=== PATIENT | male | born 1955 | race Asian ===

== ENCOUNTER 2016-12-26 | Inpatient (IN) | payer OTHER ==
[~2016-12-26] VITALS: Ht 167.6 cm; Wt 64.0 kg
[2016-12-26 00:13] VITALS: BP 160/91
[2016-12-26] MEDS ORDERED: BACTRIM DS 800/1 TAB PO (00:19)
[2016-12-26] MEDS ORDERED: COMPAZINE5 M1 PO (00:19)
--- NOTE | 2016-12-26 01:20 | NUR ---
PT TAKEN TO BED 1
--- NOTE | 2016-12-26 01:26 | NUR ---
Dr. Lau evaluating patient at bedside.
[2016-12-26] MEDS ORDERED: MORPHINE SULFATE 4 MG/ML SYR IVP ONE ×4 (01:35→04:45)
[2016-12-26] MEDS ORDERED: NACL 0.9% 1,000 ML IV ONE ×2 (01:35→04:45)
[2016-12-26] MEDS ORDERED: ONDANSETRON 4 MG/2 ML VIAL IVP ONE (01:35)
--- NOTE | 2016-12-26 01:40 | NUR ---
61Y M BIB FAMILY C/O ABD PAIN FOR FEW DAYS. NO VOMITTING NOTED.
--- NOTE | 2016-12-26 03:50 | NUR ---
PT TAKEN TO CT
--- NOTE | 2016-12-26 04:20 | NUR ---
PT RETURN FROM CT
[2016-12-26] MEDS ORDERED: PIPERACILLIN/TAZOBACTAM 3.375 GM in DEXTROSE 5% 50 ML IV ONE (04:45)
[2016-12-26] MEDS ORDERED: PIPERACILLIN/TAZOBACTAM 3.375 GM VIAL IV ONE (04:50)
[2016-12-26] MEDS: NACL 0.9% 1,000 ML IV SCH ×2 (05:17→08:45)
[2016-12-26] MEDS ORDERED: ONDANSETRON 4 MG/2 ML VIAL IVP PRN ×2 (05:20→16:30)
[2016-12-26] MEDS ORDERED: MORPHINE SULFATE 4 MG/ML SYR IVP PRN (05:20)
[2016-12-26] MEDS ORDERED: MORPHINE SULFATE 2 MG/ML SYR IVP PRN (05:20)
--- NOTE | 2016-12-26 05:58 | NUR ---
Patient will be admitted to care of DR George CALABRESE. Admited to TELEMETRY. Will go to room 122B. Belongings list completed. Report to ANTONY FUENTES.
[2016-12-26 06:00] VITALS: BP 151/84
--- NOTE | 2016-12-26 06:00 | NUR ---
ADMITTED A PT FROM ER. TRANSPORTED VIA GURNEY ACCOMPANIED BY ER NURSE AND FAMILY MEMBERS. PT IS AAOX4 VIATNAMESE SPEAKER, HAS PAIN OF 7/10, MEDICATED IN ER. SCD IN PLACED. ON ROOM AIR, NO S/S OF RESPIRATORY DISTRESS/DISCOMFORT NOTED. NOTED A NASOGASTRIC TUBE TO RIGHT NARE. VITALS CHECKED. ID BAND UPDATED. SKIN CHECKING DONE WITH THE CHARGE NURSE DONE. ROOM ENVIRONMENT DISCUSSED, VERBALIZED UNDERSTANDING. PLAN OF CARE DISCUSSED, VERBALIZED AGREEMENT. SAFETY MEASURES INITIATED, CALL LIGHT WITHIN REACH. WILL CONTINUE TO MONITOR.
[2016-12-26] MEDS ORDERED: ZOCOR40 MG PO (06:01)
[2016-12-26] MEDS ORDERED: ORETIC25 MG PO (06:01)
[2016-12-26] MEDS: PANTOPRAZOLE 80 MG in NACL 0.9% 100 ML IVP SCH ×2 (07:00→16:43)
--- NOTE | 2016-12-26 07:30 | NUR ---
ENDORSED REPORT TO AM NURSE. PT IS STABLE.
--- NOTE | 2016-12-26 07:31 | NUR ---
RECEIVED REPORT FROM ALFREDO HARDY. PT IS AAOX4. PT ON ROOM AIR WITH NO S/S OF DISTRESS NOTED. IV TO RIGHT AC #20 AND RIGHT FA #20, PATENT AND INTACT. SKIN INTACT. NO N/V OR PAIN INDICATED. ALL SAFETY PRECAUTIONS IN PLACE. WILL CONTINUE TO MONITOR. Addendum: 12/26/16 at 0830 by Candida Rangel RN NG TUBE IN PLACE.
[2016-12-26 08:00] VITALS: BP 141/86
[2016-12-26] MEDS ORDERED: PANTOPRAZOLE 40 MG INJ VIAL IVP ONE (08:43)
--- NOTE | 2016-12-26 08:57 | NUR ---
PT TOLERATED MEDS WELL. HELD ANTICOAGULANTS PT TO HAVE SURGERY.
--- NOTE | 2016-12-26 08:59 | NUR ---
PATIENT HAS BEEN SCREENED AND CATEGORIZED MODERATE NUTRITION RISK. PATIENT WILL BE SEEN WITHIN 3-5 DAYS OF ADMISSION. 12/28/16-12/30/[address] Addendum: 12/26/16 at [address] PATIENT HAS BEEN RESCREENED AND RE CATEGORIZED HIGH NUTRITION RISK D/T FNS REFERRAL RECEIVED. PATIENT WILL BE SEEN WITHIN 2-3 DAYS OF ADMISSION. 12/26/16-12/27/[address]
--- NOTE | 2016-12-26 10:00 | NUR ---
PT SLEEPING, NO DISTRESS NOTED AT THIS TIME.
--- NOTE | 2016-12-26 10:50 | NUR ---
CM NOTE INITIAL REVIEW [facility] / FAX# [phone], ATTN: DAVON #[phone]
[2016-12-26 12:00] VITALS: BP 139/94
[2016-12-26] MEDS: PIPER/TAZO 3.375GM/D5W PREMIX 50 ML IV SCH ×2 (12:49→20:44)
--- NOTE | 2016-12-26 12:55 | NUR ---
PAGED DR HARRIS, AWAITING CALLBACK.
--- NOTE | 2016-12-26 12:57 | NUR ---
TALKED TO DR HARRIS, NO ORDERED RECEIVED. AWARE OF CRITICAL LAB FOR FREE INTRAPERITONEAL AIR IS PRESENT BENEATH THE DIAPHRAGMS. AWAITING DR CALABRESE'S CALLBACK.
--- NOTE | 2016-12-26 13:40 | NUR ---
DR CALABRESE IN TO SEE PT. AWARE OF PT CRITICAL CHEST X-RAY. MD UPDATED ON PT'S PLAN OF CARE. MD AWARE PT TO HAVE SURGERY TODAY.
--- NOTE | 2016-12-26 14:03 | NUR ---
PT TAKEN OUT OF UNIT TO SURGERY.
[2016-12-26] MEDS ORDERED: DEXAMETHASONE 4 MG/ML VIAL ONE (14:20)
[2016-12-26] MEDS ORDERED: SEVOFLURANE 250 ML BTL INH ONE (14:20)
[2016-12-26] MEDS ORDERED: SUCCINYLCHOLINE CHLORIDE 200 MG/10 ML VIAL IVP ONE (14:20)
[2016-12-26] MEDS ORDERED: ONDANSETRON 4 MG/2 ML VIAL ONE (14:20)
[2016-12-26] MEDS ORDERED: ROCURONIUM 50 MG/5 ML VIAL IV ONE (14:20)
[2016-12-26] MEDS ORDERED: PROPOFOL 200 MG/20 ML VIAL IV ONE (14:20)
[2016-12-26] MEDS ORDERED: LABETALOL 100 MG/20 ML VIAL ONE (14:20)
[2016-12-26] MEDS ORDERED: fentaNYL 0.05 MG/ML VIAL ONE (14:29)
[2016-12-26] MEDS ORDERED: MIDAZOLAM 2 MG/2 ML VIAL ONE (14:29)
[2016-12-26] MEDS ORDERED: MEPERIDINE 50 MG/ML SYR ONE (14:30)
[2016-12-26 16:00] VITALS: BP 156/99
[2016-12-26] MEDS ORDERED: HYDROmorphone 1 MG/ML AMP IVP PRN (16:30)
--- NOTE | 2016-12-26 16:44 | NUR ---
PT NOT IN UNIT.
--- NOTE | 2016-12-26 17:50 | NUR ---
PT RETURNED FROM SURGERY. ROMERO CATHETER IN PLACE. ROMERO TO BE REMOVED TOMORROW. PT TO CONTINUE TO LOW INTERMITTENT SUCTION ORDERED. PT RESTING WITH NO DISTRESS NOTED.
--- NOTE | 2016-12-26 19:05 | NUR ---
PAGED DR TAYLOR TRACK MAN FOR DR CALABRESE. AWAITING CALLBACK.
--- NOTE | 2016-12-26 19:09 | NUR ---
TALKED TO DR TAYLOR. PT TO BE PLACED ON LOW INTERMITTENT SUCTION ON NG TUBE.
--- NOTE | 2016-12-26 19:19 | NUR ---
ENDORSED CARE TO ALFREDO BRUNER. PT IN STABLE CONDITION.
--- NOTE | 2016-12-26 19:20 | NUR ---
RECEIVED PT SLEEPING, EASILY AROUSABLE, AAOX4, MAURITANIAN SPEAKING ONLY, VITAL SIGNS STABLE, NO SIGNS OF PAIN, WITH ABDOMINAL DRESSING DRY AND INTACT, NO BLEEDING NOTED, WITH RT JOY DRAIN TO BULB SUCTION WITH MODERATE AMOUNT OF SEROSANGUINEOUS DRAINAGE, RT NGT TO LOW INTERMITTENT SUCTION WITH LIGHT CLEAR BROWNISH OUTPUT SMALL AMOUNT, MAINTAINED ON NPO, ROMERO CATHETER IN PLACE WITH YELLOW OUTPUT, SAFETY MEASURES IN PLACE, CALL LIGHT WITHIN REACH.
[2016-12-26 20:00] VITALS: BP 147/85
[2016-12-26] MEDS: SIMVASTATIN 40 MG TAB PO SCH (20:44)
--- NOTE | 2016-12-26 22:30 | NUR ---
PT ASSISTED TO REPOSITION TO RT SIDE, TOLERATED WELL, GENERALIZED WEAKNESS NOTED.
--- NOTE | 2016-12-26 23:40 | NUR ---
SLEEPING, EASILY AROUSABLE, VITAL SIGNS TAKEN, BP SLIGHTLY ELEVATED, DENIES ANY PAIN, NO SOB NOTED, JOY DRAIN EMPTIED WITH 30ML LIGHT REDDISH OUTPUT, ABDOMINAL DRESSING DRY AND INTACT, IVF INFUSING WELL, CONTINUE TO MONITOR CLOSELY.
[2016-12-27] VITALS: BP 161/79
[2016-12-27] MEDS: NACL 0.9% 1,000 ML IV SCH ×4 (01:17→17:34)
[2016-12-27] MEDS: PANTOPRAZOLE 80 MG in NACL 0.9% 100 ML IVP SCH ×3 (02:29→22:15)
--- NOTE | 2016-12-27 03:40 | NUR ---
SLEEPING, EASILY AROUSABLE, VITAL SIGNS STABLE, DENIES ANY PAIN, EMPTIED JOY WITH 40ML DRAINAGE, NGT TO SUCTION WITH LIGHT BROWNISH DRAINAGE, MONITORED CLOSELY.
[2016-12-27 04:00] VITALS: BP 151/73
[2016-12-27] MEDS: PIPER/TAZO 3.375GM/D5W PREMIX 50 ML IV SCH ×3 (05:00→20:32)
--- NOTE | 2016-12-27 05:40 | NUR ---
PT SLEEPING, EASILY AROUSABLE, TOTAL JOY OUTPUT OF 85ML SEROSANGUINEOUS DRAINAGE, NGT TO LOW INTERMITTENT SUCTION WITH 100ML BROWNISH OUTPUT, ABDOMINAL DRESSING DRY AND INTACT, ROMERO IN PLACE, IVF INFUSING WELL, MAINTAINED ON NPO, MONITORED CLOSELY.
--- NOTE | 2016-12-27 07:15 | NUR ---
PT ASLEEP, NO SIGNS OF DISTRESS, REPORT GIVEN TO RN GILBERTO FOR CONTINUITY OF CARE.
--- NOTE | 2016-12-27 07:16 | NUR ---
RECEIVED REPORT FROM ALFREDO BRUNER. PT IS AAOX4. PT ON ROOM AIR WITH NO S/S OF DISTRESS NOTED. IV TO RIGHT AC #20 AND RIGHT FA #20, PATENT AND INTACT. DRESSING NOTED TO ABDOMEN WITH JOY DRAIN, NG TUBE IN PLACE. ROMERO CATHETER IN PLACE. NO N/V OR PAIN INDICATED. ALL SAFETY PRECAUTIONS IN PLACE, SIDE RAILSX2, BED IN LOW POSITION, AND CALL LIGHT WITHIN REACH. WILL CONTINUE TO MONITOR.
[2016-12-27 08:00] VITALS: BP 157/83
[2016-12-27] MEDS ORDERED: HYDROCHLOROTHIAZIDE 25 MG TAB PO SCH (09:00)
[2016-12-27] MEDS: ENOXAPARIN 40 MG/0.4 ML SYR SUBQ SCH (09:27)
--- NOTE | 2016-12-27 09:30 | NUR ---
HELD PO MEDS. PT IS NPO WITH NG TUBE ON LOW INTERMITTENT SUCTION. ADMINISTERED ONLY ONE ANTICOAGULANT. WILL CONTINUE TO MONITOR.
--- NOTE | 2016-12-27 09:53 | NUR ---
TALKED TO DR KIMBERLY MD AWARE OF PT CURRENT STATUS. OK PER MD TO CHANGE DRESSING. D/C HEPARIN AND CONTINUE WITH LOVENOX ADMINISTRATION.
--- NOTE | 2016-12-27 11:51 | NUR ---
VSS. ALL NEEDS MET AT THIS TIME. WILL CONTINUE TO MONITOR. FAMILY PRESENT AT BEDSIDE.
[2016-12-27 12:00] VITALS: BP 151/84
--- NOTE | 2016-12-27 12:23 | NUR ---
PT TOLERATED MEDS WELL. FAMILY PRESENT AT BEDSIDE. WILL CONTINUE TO MONITOR.
--- NOTE | 2016-12-27 13:36 | NUR ---
CM NOTE CONCURRENT REVIEW [facility] / FAX# [phone], ATTN: DAVON #[phone]
--- NOTE | 2016-12-27 13:51 | NUR ---
12/27/16 RD INITIAL ASSESSMENT COMPLETED PLEASE REFER TO NUTRITION ASSESSMENT UNDER CARE ACTIVITY FOR ESTIMATED NUTRITIONAL NEEDS. RD RECOMMENDATIONS: 1. CONTINUE NPO DIET MEDICALLY APPROPRIATE. 2. IF/WHEN PT IS MEDICALLY STABLE TO BEGIN NUTRITION, CONSIDER CLEAR LIQUID AND ADVANCE TOLERATED TO CARDIAC DIET. --NOTE IF PT WILL NEED NUTRITION SUPPORT, PLEASE CONSULT RD FOR RECOMMENDATIONS. 3. RD WILL F/U 3-5 DAYS; MODERATE RISK. VIVIENNE RUDOLPH RD
[2016-12-27 16:00] VITALS: BP 150/71
--- NOTE | 2016-12-27 17:41 | NUR ---
PT TOLERATED IV FLUIDS WELL. WILL CONTINUE TO MONITOR.
--- NOTE | 2016-12-27 18:17 | NUR ---
TALKED TO DR HARRIS, D/C ROMERO CATHETER, CONTINUE PROTONIX (PERFORATED ULCER), PLACE ABD PAD FOR DRESSING CHANGE.
--- NOTE | 2016-12-27 18:38 | NUR ---
ROMERO CATHETER REMOVED, 10CC NOTED. PT TOLERATED WELL. FAMILY PRESENT AT BEDSIDE. WILL CONTINUE TO MONITOR.
--- NOTE | 2016-12-27 19:30 | NUR ---
ENDORSED CARE TO ALFREDO GUADARRAMA. PT IN STABLE CONDITION.
--- NOTE | 2016-12-27 19:35 | NUR ---
RECEIVED REPORT FROM GILBERTO FUENTES FOR CONTINUITY OF CARE. PT IS A&OX4, DISCUSSED PLAN OF CARE WITH PATIENT AND AT BEDSIDE, VERBALIZED UNDERSTANDING. SHIFT ASSESSMENT DONE, VS TAKEN, PT IS STABLE AT THIS TIME. NO S/S OF RESPIRATORY DISTRESS NOTED ON ROOM AIR. PATIENT DENIES PAIN. IV TO RT FOREARM 20 GAUGE PATENT AND INFUSING FLUIDS WELL, AND IV TO RT AC 20 GAUGE PATENT AND FLUSHED. PT S/P EXPLORATORY LAP 12/26/16, DRESSING TO ABDOMEN INTACT NO DRAINAGE NOTED. JOY DRAIN TO RT ABDOMEN SANGUINOUS DRAINAGE NOTED. NG TUBE TO RT NARE, DRAINING GREEN TO LOW INTERMITTENT SUCTION. SAFETY/ FALL PRECAUTIONS ENFORCED. CALL LIGHT PLACED WITHIN REACH. WILL CONTINUE TO MONITOR.
[2016-12-27 20:00] VITALS: BP 131/75
[2016-12-27] MEDS: SIMVASTATIN 40 MG TAB PO SCH (20:32)
--- NOTE | 2016-12-27 20:32 | NUR ---
DUE IVPB ANTIBIOTICS ADMINISTERED. FAMILY MEMBERS AT BEDSIDE. CALL LIGHT WITHIN REACH.
--- NOTE | 2016-12-27 22:56 | NUR ---
ASSISTED PATIENT TO RESTROOM, VOIDED 150 ML CLEAR YELLOW URINE. PATIENT RETURNED TO BED AND MADE COMFORTABLE. ASKED PT IF HE WANTED SCDS IN PLACE PT STATES, "NO THEY BOTHER ME."
[2016-12-28] VITALS: BP 143/81
--- NOTE | 2016-12-28 00:02 | NUR ---
VS TAKEN, TEMP 99.7, IMPLEMENTED COOLING MEASURES, WILL REASSESS.
--- NOTE | 2016-12-28 01:58 | NUR ---
PATIENT IS SLEEPING, NO S/S OF DISTRESS OR DISCOMFORT NOTED. COOLING MEASURES IN PLACE. CALL LIGHT WITHIN REACH.
[2016-12-28 04:00] VITALS: BP 137/72
[2016-12-28] MEDS: NACL 0.9% 1,000 ML IV SCH ×2 (04:08→17:17)
[2016-12-28] MEDS: PIPER/TAZO 3.375GM/D5W PREMIX 50 ML IV SCH ×3 (04:08→20:15)
--- NOTE | 2016-12-28 04:08 | NUR ---
DUE MEDICATIONS ADMINISTERED. VS TAKEN, STABLE. PT IS NOW SLEEPING. CALL LIGHT WITHIN REACH.
--- NOTE | 2016-12-28 05:54 | NUR ---
PT IS SLEEPING. NO S/S OF DISTRESS NOTED. NG TUBE DRAINING TO LOW INTERMITTENT SUCTION. CALL LIGHT WITHIN REACH.
--- NOTE | 2016-12-28 07:20 | NUR ---
ENDORSED PATIENT TO DAYSHIFT RN FOR CONTINUITY OF CARE. PATIENT IS STABLE.
--- NOTE | 2016-12-28 07:21 | NUR ---
RECEIVED REPORT FROM NURSE THIERRY FUENTES, PATIENT APPEARED TO BE CALMED, AWAKE, AND RESTING WELL IN BED. AAOX4 TAJIK SPEAKING. NO SIGN OF SOB OR SIGN OF RESPIRATORY DISTRESS NOTED AT THIS TIME. INITIAL ASSESSMENT AND BODY CHECK DONE. PATIENT DENIED ANY PAIN OR CHEST DISCOMFORT. DENIED N.V. DENIED HEADACHE. PATIENT HAS NG TUBE TO RIGHT NARES AT LOW INTERMITTENT SUCTION WITH 250ML DARK BROWN DRAINAGE FROM CANISTER. PATIENT HAS ABD INCISION WITH DRY INTACT DRESSING FROM S/P EXPLORATORY LAP MELANIE. PATIENT ALSO HAS JOY DRAINAGE SYSTEM, EMPTIED 55ML OF SEROSANGUINEOUS AND REAPPLIED NEGATIVE PRESSURE. BOWEL SOUNDED ACTIVE. PT REPORTED HAVE NOT PASSED GAS YET AT THIS TIME. ENCOURAGED PATIENT TO AMBULATE MORE IF POSSIBLE, ALSO PLAN OF CARE, PAIN MANAGEMENT AND MEDICATION REGIMENTS DISCUSSED, PATIENT VERBALIZED UNDERSTANDING. CALL LIGHT WITHIN REACH. WILL CONTINUE TO MONITOR. Addendum: 12/29/16 at 0733 by Yuri Newton RN S/P EXPLORATORY LAPAROTOMY INSTEAD OF LAP MELANIE.
[2016-12-28 08:00] VITALS: BP 136/60
--- NOTE | 2016-12-28 09:30 | NUR ---
VS RECHECKED, PATIENT HAVING MILD FEVER 99.8. COOLING MEASURE INITIATED. WILL NOTIFY MD REGARDING PATIENT DOES NOT HAVE MEDICATION FOR FEVER AT THIS TIME. OTHERWISE NO SIGN OF DISTRESS NOTED. PATIENT DENIED ANY PAIN OR DISCOMFORT. ALL NEEDS ARE MET. CALL LIGHT WITHIN REACH. WILL CONTINUE TO MONITOR.
--- NOTE | 2016-12-28 09:56 | NUR ---
SPOKE TO AND UPDATED DR HARRIS REGARDING PATIENT'S CURRENT CONDITION. MD AWARE PATIENT HAVING MILD FEVER 99.8. RECEIVED MD TELEPHONE ORDER FOR TYLENOL PO 650MG Q6H FOR FEVER.
[2016-12-28] MEDS ORDERED: ACETAMINOPHEN 650 MG/20.3 ML UDC PO PRN (10:00)
[2016-12-28] MEDS: PANTOPRAZOLE 80 MG in NACL 0.9% 100 ML IVP SCH ×2 (10:11→20:14)
[2016-12-28] MEDS: ENOXAPARIN 40 MG/0.4 ML SYR SUBQ SCH (10:13)
[2016-12-28] MEDS: HYDROCHLOROTHIAZIDE 25 MG TAB PO SCH (10:19)
--- NOTE | 2016-12-28 10:19 | NUR ---
STOP SUCTION AND MORNING DUE MEDICATIONS AND TYLENOL LIQUID GIVEN THROUGH NG TUBE , PATIENT TOLERATED WELL. NO SIGN OF DISTRESS NOTED. WILL RESUMED SUCTION THROUGH NG-TUBE. PATIENT DENIED ANY DISCOMFORT AT THIS TIME. ALL NEEDS ARE MET. CALL LIGHT WITHIN REACH. WILL CONTINUE TO MONITOR. FAMILY MEMBER AT BEDSIDE.
--- NOTE | 2016-12-28 10:30 | NUR ---
45ML OF SEROSANGUINEOUS FROM JOY DRAINAGE. WILL NOTIFY
[2016-12-28 12:00] VITALS: BP 147/69
--- NOTE | 2016-12-28 13:55 | NUR ---
EMPTIED ANOTHER 30ML OF SEROSANGUINEOUS FOR JOY DRAINAGE.
--- NOTE | 2016-12-28 14:22 | NUR ---
DR. CALABRESE IS HERE TO SEE PATIENT. NOTIFIED DR CALABRESE AND SHE AWARE PATIENT BEEN HAVING FEVER 99.9- 100.7 AFTER GIVEN TYLENOL AND COOLING MEASURES. MD ALSO AWARE PATIENT'S POTASSIUM 3.4 AND TOTAL OF 130ML OF SEROSANGUINEOUS FROM JOY DRAIN.
--- NOTE | 2016-12-28 14:23 | NUR ---
ASSISTED PATIENT AMBULATING AROUND THE HALLWAY ABOUT 120FEETS AND BACK TO BED SAFELY. NO SIGN OF SOB OR DISTRESS NOTED. DENIED ANY PAIN OR DISCOMFORT. FAMILY MEMBER AT BEDSIDE. CLINICAL RN MANAGER ALSO HELPING PATIENT WITH COLD BATH FOR FEVER. CALL LIGHT WITHIN REACH. WILL CONTINUE TO MONITOR.
[2016-12-28] MEDS ORDERED: KCL 20 MEQ/WATER INJ PREMIX 100 ML IV SCH (14:40)
[2016-12-28 16:00] VITALS: BP 135/63
--- NOTE | 2016-12-28 17:32 | NUR ---
DRESSING CHANGED TO ABD INCISION GIVEN, AND PHOTO TAKEN AND PUT IN CHART. PATIENT TOLERATED WELL. NO REDNESS OR SWELLING NOTED. FAMILY MEMBER AT BEDSIDE. WILL CONTINUE TO MONITOR.
--- NOTE | 2016-12-28 18:27 | NUR ---
EMPTIED ANOTHER 40ML OR SEROSANGUINEOUS FROM JOY DRAINAGE. DR KIMBERLY HERNANDEZ.
--- NOTE | 2016-12-28 18:28 | NUR ---
SPOKE TO DR HARRIS ON THE PHONE AND HE AWARE PATIENT TOTAL OUTPUT FROM JOY TODAY IS 170ML SEROSANGUINEOUSLY AND 350ML DARK BROWN FROM NG-TUBE. NO NEW ORDER RECEIVED FROM . CHARGE NURSE ALFREDO CARRERO ALSO AWARE.
--- NOTE | 2016-12-28 18:30 | NUR ---
TOTAL OF 350ML OF DARK BROWN DRAINING OUTPUT FROM NG-TUBE SUCTIONING.
--- NOTE | 2016-12-28 19:20 | NUR ---
ENDORSED PATIENT'S CURRENT PLAN OF CARE TO NIGHT NURSE ANTONY RN, PATIENT RESTING IN BED WITH NO SIGN OF DISTRESS NOTED.
--- NOTE | 2016-12-28 19:21 | NUR ---
RECEIVED REPORT FROM AM NURSE. PT IS AAOX4, KENYAN SPEAKER. HAS NO COMPLAIN OF PAIN. ON ROOM AIR, NO S/S OF RESPIRATORY DISTRESS/DISCOMFORT NOTED. SURGICAL DRESSING NOTED TO ABDOMEN, DRY AND CLEAN. IV SITE IS PATENT AND INTACT. PLAN OF CARE DISCUSSED, VERBALIZED UNDERSTANDING. SAFETY MEASURES CHECKED, CALL LIGHT WITHIN REACH. WILL CONTINUE TO MONITOR.
[2016-12-28 20:00] VITALS: BP 150/70
[2016-12-28] MEDS: metroNIDAZOLE 500 MG/NS PREMIX 100 ML IV SCH ×2 (20:15→21:00)
[2016-12-28] MEDS: SIMVASTATIN 40 MG TAB PO SCH (20:16)
[2016-12-29] VITALS: BP 124/56
--- NOTE | 2016-12-29 | NUR ---
VS CHECKED AND STABLE. NO COMPLAIN OF PAIN. NO S/S OF RESPIRATORY DISTRESS/DISCOMFORT NOTED.
--- NOTE | 2016-12-29 02:23 | NUR ---
PT IS AWAKE, NO COMPLAIN OF PAIN. PATIENT STATED " I ALREADY PASS A GAS".
--- NOTE | 2016-12-29 02:33 | NUR ---
DUE MEDS GIVEN. PT TOLERATED WELL.
[2016-12-29] MEDS: NACL 0.9% 1,000 ML IV SCH ×3 (03:17→20:13)
[2016-12-29 04:00] VITALS: BP 113/56
[2016-12-29] MEDS: metroNIDAZOLE 500 MG/NS PREMIX 100 ML IV SCH ×3 (05:41→20:54)
[2016-12-29] MEDS: PIPER/TAZO 3.375GM/D5W PREMIX 50 ML IV SCH ×3 (05:41→20:16)
[2016-12-29] MEDS: PANTOPRAZOLE 80 MG in NACL 0.9% 100 ML IVP SCH ×2 (05:41→16:04)
--- NOTE | 2016-12-29 05:45 | NUR ---
DUE MEDICATION GIVEN. NO SIGNS OF DISTRESS NOTED.
--- NOTE | 2016-12-29 07:18 | NUR ---
ENDORSED REPORT TO AM NURSE. PT IS STABLE. NO SIGNS OF DISTRESS.
--- NOTE | 2016-12-29 07:20 | NUR ---
RECEIVED REPORT FROM NURSE ANTONY FUENTES, PATIENT APPEARED TO BE ASLEEP, AWAKE TO NAME CALLED, AND RESTING WELL IN BED. AAOX4 KHMER SPEAKING. NO SIGN OF SOB OR SIGN OF RESPIRATORY DISTRESS NOTED AT THIS TIME. ASSESSMENT AND BODY CHECK DONE. PATIENT DENIED ANY PAIN OR CHEST DISCOMFORT. DENIED N.V. DENIED HEADACHE. PATIENT HAS NG TUBE TO RIGHT NARES AT LOW INTERMITTENT SUCTION WITH 850ML DARK BROWN DRAINAGE MARKED FROM CANISTER. PATIENT HAS ABD INCISION WITH DRY INTACT DRESSING FROM S/P EXPLORATORY LAPAROTOMY. PATIENT ALSO HAS JOY DRAINAGE SYSTEM, SEROSANGUINEOUS. BOWEL SOUNDED ACTIVE. PT REPORTED PASSED GAS YESTERDAY.PLAN OF CARE, PAIN MANAGEMENT AND MEDICATION REGIMENTS DISCUSSED, PATIENT VERBALIZED UNDERSTANDING. CALL LIGHT WITHIN REACH. WILL CONTINUE TO MONITOR.
[2016-12-29 08:00] VITALS: BP 143/67
[2016-12-29] MEDS: HYDROCHLOROTHIAZIDE 25 MG TAB PO SCH (09:13)
[2016-12-29] MEDS: ENOXAPARIN 40 MG/0.4 ML SYR SUBQ SCH (09:14)
--- NOTE | 2016-12-29 09:24 | NUR ---
MORNING DUE MEDICATIONS GIVEN THROUGH NG-TUBE WITH TEACHING. PATIENT TOLERATED WELL AND VERBALIZED UNDERSTANDING. NO SIGN OF DISTRESS NOTED. PATIENT DENIED ANY PAIN OR DISCOMFORT. DRESSING TO ABD STILL DRY AND INTACT. WILL RESUME SUCTION SHORTLY FOR MEDICATION ABSORPTION . ALL NEEDS ARE MET. CALL LIGHT WITHIN REACH. WILL CONTINUE TO MONITOR.
--- NOTE | 2016-12-29 09:34 | NUR ---
TOLD DR HARRIS ON THE PHONE AND HE AWARE PATIENT HAS PASSING GAS SINCE LAST NIGHT AND WBC 13.6 AND POTASSIUM 3.4. MD ALSO AWARE 40ML OF SEROSANGUINEOUS WAS EMPTIED LAST NIGHT. RECEIVED TELEPHONE ORDER FOR D/C NG-TUBE AND REMAIN NPO FOR NOW. WILL FOLLOW THROUGH MD ORDERS.
--- NOTE | 2016-12-29 09:56 | NUR ---
D/C NG-TUBE, PATIENT TOLERATED WELL. EMPTIED 50ML OF DARK DON DRAINAGE. NO SIGN OF DISTRESS NOTED. FAMILY MEMBERS AT BEDSIDE. WILL CONTINUE TO MONITOR.
[2016-12-29 11:33] VITALS: BP 143/71
--- NOTE | 2016-12-29 12:32 | NUR ---
ASSISTED PATIENT TO THE BATHROOM AND BACK TO BED SAFELY, PATIENT HAS 1 LARGE BOWEL MOVEMENT OF DARK FORM STOOL. ALSO EMPTIED 30ML OR SEROSANGUINEOUS FROM JOY DRAIN. WILL NOTIFY
--- NOTE | 2016-12-29 12:58 | NUR ---
SPOKE TO DR HARRIS AND HE AWARE PATIENT HAD LARGE BOWEL MOVEMENT WITH BLACK TARRY STOOL AND SMALL STREAK OF BRIGHT RED BLOOD. MD STATED IT'S NORMAL. MD STATED STILL KEEP PATIENT NPO AT THIS TIME.
--- NOTE | 2016-12-29 13:20 | NUR ---
DRESSING TO ABD GIVEN. CLEANED SURGICAL SITE WITH IODINE PAD DRY AND APPLIED GAUZE AND ABD PAD WITH TAPE. NO REDNESS OR SWELLING NOTED. PATIENT TOLERATED WELL. INSTRUCTED PATIENT FAMILY MEMBERS TO KEEP PATIENT NOTHING BY MOUTH AT THIS TIME, THEY VERBALIZED UNDERSTANDING. ALL NEEDS ARE MET. CALL LIGHT WITHIN REACH. WILL CONTINUE TO MONITOR.
--- NOTE | 2016-12-29 15:02 | NUR ---
PATIENT REMAINED CALM, AWAKE AND RESTING WELL IN BED. NO SIGN OF DISTRESS NOTED. PATIENT HAS NO COMPLAINING OF PAIN. ALL NEEDS ARE MET. FAMILY MEMBERS AT BEDSIDE. CALL LIGHT WITHIN REACH. WILL CONTINUE TO MONITOR.
[2016-12-29 16:00] VITALS: BP 147/69
[2016-12-29] MEDS ORDERED: KCL 20 MEQ/WATER INJ PREMIX 100 ML IV ONE (16:25)
--- NOTE | 2016-12-29 17:06 | NUR ---
PATIENT REMAINED CALM, AWAKE AND RESTING WELL IN BED. NO SIGN OF DISTRESS NOTED. PATIENT DENIED ANY PAIN. DENIED N/V. ALL NEEDS ARE MET. FAMILY MEMBERS AT BEDSIDE. CALL LIGHT WITHIN REACH. WILL CONTINUE TO MONITOR.
--- NOTE | 2016-12-29 17:47 | NUR ---
EMPTIED ANOTHER 10ML OF SEROSANGUINEOUS FROM JOY DRAIN.
--- NOTE | 2016-12-29 19:03 | NUR ---
ENDORSED PATIENT CURRENT PLAN OF CARE TO NIGHT NURSE ANTONY FUENTES, PATIENT RESTING WELL IN BED. NO SIGN OF DISTRESS NOTED AT THIS TIME.
--- NOTE | 2016-12-29 19:05 | NUR ---
RECEIVED REPORT FROM AM NURSE. PT IS AAOX4, DENIED ANY PAIN AT THIS TIME. ON ROOM AIR, NO S/S OF RESPIRATORY DISTRESS/DISCOMFORT NOTED. IV SITE IS PATENT AND INTACT. PLAN OF CARE DISCUSSED, VERBALIZED UNDERSTANDING. SAFETY MEASURES CHECKED, CALL LIGHT WITHIN REACH. WILL CONTINUE TO MONITOR.
[2016-12-29 20:00] VITALS: BP 147/73
[2016-12-29] MEDS: SIMVASTATIN 40 MG TAB PO SCH (21:00)
--- NOTE | 2016-12-29 22:36 | NUR ---
PT IS SLEEPING. NO S/S OF RESPIRATORY DISTRESS/DISCOMFORT NOTED.
[2016-12-30] VITALS: BP 139/64
--- NOTE | 2016-12-30 | NUR ---
VS CHECKED AND STABLE. NO S/S OF RESPIRATORY DISTRESS/DISCOMFORT NOTED.
[2016-12-30] MEDS: PANTOPRAZOLE 80 MG in NACL 0.9% 100 ML IVP SCH ×2 (00:14→11:09)
[2016-12-30 04:00] VITALS: BP 142/68
[2016-12-30] MEDS: PIPER/TAZO 3.375GM/D5W PREMIX 50 ML IV SCH ×3 (04:03→21:15)
--- NOTE | 2016-12-30 04:19 | NUR ---
PT SLEEPING AT THIS TIME. NO S/S OF RESPIRATORY DISTRESS/DISCOMFORT NOTED.
[2016-12-30] MEDS: metroNIDAZOLE 500 MG/NS PREMIX 100 ML IV SCH ×3 (04:29→20:22)
--- NOTE | 2016-12-30 05:57 | NUR ---
PT SLEEPING BUT EASILY AWAKE BY HIS NAME. EMPTIED JOY DRAIN, 20 ML OUTPUT.
--- NOTE | 2016-12-30 07:20 | NUR ---
ENDORSED REPORT TO AM NURSE. PT IS IN STABLE CONDITION.
--- NOTE | 2016-12-30 07:21 | NUR ---
RECEIVED PT REPORT FROM THE RADIOGRAPHIC TECHNOLOGIST NURSE AT BEDSIDE. PT IS SLEEPING WITH AT BEDSIDE. WILL GET REPORT AND WILL BE BACK TO REASSESS PT. NOTED NO SIGNS OF DISTRESS. WILL CONTINUE TO MONITOR.
--- NOTE | 2016-12-30 07:45 | NUR ---
WENT BACK INTO THE ROOM AND HE WAS AWAKE AND ORIENTED. PT IS MONEGASQUE SPEAKING. HX: HAD A EXP LAP FOR PERFORATED BOWEL ON 12/26. NOTED THE SURGICAL WOUND ON HIS ABDOMEN X 3. HAS JOY DRAIN. COLLECTION FROM LAST NIGH WAS 22CC. NOTED THE R FA 20G , NS AT 100ML. I INTRODUCED MYSELF AND UPDATED THE BOARD. V/S WITHIN NORMAL RANGE. DENIED ANY PAIN. HIS WAS HERE BUT WENT HOME TO TAKE A SHOWER. WILL BE BACK LATER. ALSO NOTED THAT HIS MOTHER IS IN BED A. LAB CALLED EARLIER ABOUT THE PROTONIX DRIP AT 10CC/HR. WILL ASK DR WHEN SHE CALLS BACK OR WHEN SHE COMES IN. WILL CONTINUE TO MONITOR PT.
[2016-12-30 08:00] VITALS: BP 147/71
--- NOTE | 2016-12-30 08:00 | NUR ---
PAGED DR. CALABRESE FOR CRITICAL. NO RESPONSE YET. FOR ANOTHER PT, WHO WAS COVERING DR. CALABRESE CALLED BUT ONLY FOR 1 PT AND NOT FOR THIS PT. WILL AWAIT FOR HER RESPONSE OR WAIT UNTIL SHE COMES TO THE HOSPITAL.
[2016-12-30] MEDS: HYDROCHLOROTHIAZIDE 25 MG TAB PO SCH (09:00)
[2016-12-30] MEDS: NACL 0.9% 1,000 ML IV SCH ×2 (09:17→21:15)
[2016-12-30] MEDS: ENOXAPARIN 40 MG/0.4 ML SYR SUBQ SCH (09:40)
--- NOTE | 2016-12-30 09:45 | NUR ---
SALES PROFESSIONAL STATED PT'S IV IS LEAKING. WENT TO CHECK. IV HAS INFILTRATED AND SOMEWHAT DISLODGED. D/C'D THE IV, CANNULA INTACT. PT STILL HAS ANOTHER IV SITE RIGHT ABOVE THE D/C'D ONE. IT IS PATENT AND INTACT. ADMINISTERED NS AT 100ML.
[2016-12-30] MEDS ORDERED: POTASSIUM CHLORIDE 60 MEQ, LIDOCAINE 1% 25 MG in NACL 0.9% 250 ML IV SCH (11:30)
--- NOTE | 2016-12-30 11:30 | NUR ---
SPOKE TO PT AND DECIDED THAT WE WILL START ANOTHER IV SITE ON THE OTHER HAND FOR ADDITIONAL IV ACCESS. L HAND 22G SL. PT TOLERATED WELL. WILL CONTINUE TO MONITOR PT.
[2016-12-30 12:00] VITALS: BP 152/74
--- NOTE | 2016-12-30 13:00 | NUR ---
AT A CLEAR LIQUID DIET. PT TOLERATED WELL. WILL CONTINUE TO MONITOR PT.
--- NOTE | 2016-12-30 15:00 | NUR ---
PT'S BROTHER CALLED. WANTED TO SPEAK TO DR. HARRIS. WANTED MORE INFORMATION ON HIS BROTHER'S SURGERY. PAGED DR. HARRIS AND GAVE BROTHER'S NUMBER TO HIM. NOTIFIED PT THAT I DID SPEAK TO DR. HARRIS AND THAT I DID PASS ON THE NUMBER FOR HIM TO CALL.
[2016-12-30 16:00] VITALS: BP 147/71
--- NOTE | 2016-12-30 16:02 | NUR ---
PT RESTING IN BED. FAMILY BY HIS SIDE. I REMOVED ALL BANDAGE ON THE ABDOMEN. NOTED 10 RAJESH IN THE MIDDLE OF EPIGASTRIC AND UMBILICAL REGION. THE SURGICAL INCISION IS HEALING WELL. NO BLEEDING NOTED. NO OOZING NOTED. DRESSING WAS CLEAN. USED NS TO CLEAN AND PATTED DRY WITH GAUZE. REPLACED THE ABDOMINAL PAD WITH SOME GAUZE AND TAPE. THE R SIDE WAS THE JOY DRAIN INSERTION. IT LOOKED CLEAN. STITCH STILL INTACT. USED A T SPONGE AND TAPE TO CLOSE IT BACK UP. DATED AND TIMED IT. PT TOLERATED WELL. WILL CONTINUE TO MONITOR PT.
--- NOTE | 2016-12-30 18:00 | NUR ---
PT WANTED TO AMBULATE TO THE RESTROOM. I DISCONNECTED BOTH IV'S SO THAT HE CAN GO FREELY. WILL LET ME KNOW WHEN HE IS READY TO GO BACK TO BED. I WILL RECONNECT HIM.
--- NOTE | 2016-12-30 19:22 | NUR ---
ENDORSED PT TO THE NET WPF DEVELOPER NURSE AT BEDSIDE FOR CONTINUITY OF CARE. PT IS STABLE.
--- NOTE | 2016-12-30 19:30 | NUR ---
ASSUMED CARE OF PATIENT, AWAKE, ALERT AND ORIENTED. FAMILY AT BEDSIDE. NO COMPLAINS. CALL LIGHT WITHIN REACH.
[2016-12-30 19:58] VITALS: BP 142/73
--- NOTE | 2016-12-30 20:00 | NUR ---
VITAL SIGNS STABLE. NO COMPLAINS. PLAN OF CARE DISCUSSED WITH PATIENT AND FAMILY MEMBER, VERBALIZED UNDERSTANDING WELL. CALL LIGHT WITHIN REACH.
[2016-12-30] MEDS: SIMVASTATIN 40 MG TAB PO SCH (20:22)
--- NOTE | 2016-12-30 21:03 | NUR ---
DRESSING DRY AND INTACT, JOY WITH MIMIMAL OUTPUT NOTED, DRAINING WELL. DUE MEDS GIVEN. CALL LIGHT WITHIN REACH.
[2016-12-31 00:06] VITALS: BP 141/76
--- NOTE | 2016-12-31 00:08 | NUR ---
SLEEPING WELL. EASILY AROUSABLE. NO COMPLAINS. VITAL SIGNS STABLE. AFEBRILE. CALL LIGHT WITHIN REACH.
[2016-12-31 04:02] VITALS: BP 141/71
--- NOTE | 2016-12-31 04:04 | NUR ---
TOLERATED PO WELL. VITAL SIGNS STABLE. AFEBRILE. NO COMPLAINS. CALL LIGHT WITHIN REACH.
[2016-12-31] MEDS: PIPER/TAZO 3.375GM/D5W PREMIX 50 ML IV SCH ×3 (04:18→21:00)
[2016-12-31] MEDS: metroNIDAZOLE 500 MG/NS PREMIX 100 ML IV SCH ×3 (04:57→21:03)
[2016-12-31] MEDS ORDERED: PANTOPRAZOLE 40 MG TABEC PO SCH (06:30)
--- NOTE | 2016-12-31 07:11 | NUR ---
ENDORSED CARE AT BEDSIDE WITH YASMEEN RN, PATIENT IN STABLE CONDITION.
--- NOTE | 2016-12-31 07:12 | NUR ---
RECEIVED REPORT FROM NURSE ALFREDO DICKEY PATIENT APPEARED TO BE CALM, AWAKE, AND RESTING WELL IN BED. AAOX4 LATVIAN SPEAKING. NO SIGN OF SOB OR SIGN OF RESPIRATORY DISTRESS NOTED AT THIS TIME. ASSESSMENT AND BODY CHECK DONE. PATIENT DENIED ANY PAIN OR CHEST DISCOMFORT. DENIED N.V. DENIED HEADACHE. PATIENT HAS ABD INCISION WITH DRY INTACT DRESSING FROM S/P EXPLORATORY LAPAROTOMY. PATIENT ALSO HAS JOY DRAINAGE SYSTEM, EMPTIED 15ML OF SEROSANGUINEOUS. BOWEL SOUNDED ACTIVE.PLAN OF CARE, PAIN MANAGEMENT AND MEDICATION REGIMENTS DISCUSSED, PATIENT VERBALIZED UNDERSTANDING. CALL LIGHT WITHIN REACH. WILL CONTINUE TO MONITOR.
[2016-12-31 08:00] VITALS: BP 139/77
[2016-12-31] MEDS: HYDROCHLOROTHIAZIDE 25 MG TAB PO SCH (08:33)
[2016-12-31] MEDS: ENOXAPARIN 40 MG/0.4 ML SYR SUBQ SCH (08:39)
--- NOTE | 2016-12-31 08:40 | NUR ---
MORNING DUE MEDICATIONS WITH TEACHING GIVEN, PATIENT VERBALIZED UNDERSTANDING. PATIENT REMAINED CALM AND RESTING WELL IN BED. DENIED ANY PAIN OR DISCOMFORT. ALL NEEDS ARE MET. CALL LIGHT WITHIN REACH. WILL CONTINUE TO MONITOR.
--- NOTE | 2016-12-31 09:01 | NUR ---
RECEIVED TELEPHONE ORDER FROM DR CALABRESE FOR 60MEQ POTASSIUM LIQUID X1 FOR POTASSIUM 2.9
[2016-12-31] MEDS ORDERED: POTASSIUM CHLORIDE 20% 40 MEQ/15 ML UDC GT SCH (09:30)
--- NOTE | 2016-12-31 11:10 | NUR ---
PATIENT AMBULATING ABOUT 150FEETS AROUND THE HALLWAY WITH ASSISTED OF HIS . PATIENT APPEARED TO BE CALM WITH NO SOB OR RESPIRATORY DISTRESS NOTED. DENIED ANY PAIN. DENIED N/V, AND TOLERATED WELL. WILL CONTINUE TO MONITOR.
[2016-12-31 12:00] VITALS: BP 149/77
--- NOTE | 2016-12-31 14:03 | NUR ---
FAXED CONCURRENT REVIEW FOR 12/30/16 TO [facility] ON 12/30/16 FAXED CONCURRENT REVIEW TO [facility] [phone] PHONE [facility] [phone]
--- NOTE | 2016-12-31 15:20 | NUR ---
FAXED ORDER FOR SNF FOR WOUND CARE AND IV ZOSYN AND IV FLAGYL FOR 1 WEEK TO [facility] AT [facility]. FAX [phone] PHONE [phone].
--- NOTE | 2016-12-31 15:40 | NUR ---
DR CALABRESE IS HERE TO SEE PATIENT. PATIENT AGREED TO BE TRANSFERRED TO SNF FOR CONTINUITY OF CARE.
[2016-12-31 16:00] VITALS: BP 129/73
--- NOTE | 2016-12-31 16:47 | NUR ---
SPOKE WITH DAVON FROM [facility],[phone]. I TOLD HER WHEN SHE GETS THE SNF FOR THE PATIENT TO CALL THE FLOOR. I CALLED LUIS ENRIQUE FUENTESTECHNICAL DATA ANALYST NURSE AND INFORMED HER THAT DAVON WILL CALL HER FOR THE SNF. DAVON SHOULD GIVE HER THE AUTH FOR THE SNF AND THE AUTH FOR TRANSPORT.
--- NOTE | 2016-12-31 17:05 | NUR ---
DRESSING TO ABD GIVEN. CLEANED SURGICAL SITE WITH IODINE PAD DRY AND APPLIED GAUZE AND ABD PAD WITH TAPE. NO REDNESS OR SWELLING NOTED. PATIENT TOLERATED WELL. PICTURE OF ABD WOUND TAKEN AND PUT IN CHART. ALL NEEDS ARE MET. CALL LIGHT WITHIN REACH. WILL CONTINUE TO MONITOR.
--- NOTE | 2016-12-31 17:08 | NUR ---
EMPTIED 30ML OF SEROSANGUINEOUS FROM JOY DRAIN.
[2016-12-31] MEDS: NACL 0.9% 1,000 ML IV SCH (17:51)
--- NOTE | 2016-12-31 18:48 | NUR ---
CALLED [facility] AND SPOKE WITH FABIANA COVERING FOR DAVON ,SHE SAID SHE WILL CHECK AND CALL BACK
--- NOTE | 2016-12-31 19:16 | NUR ---
ENDORSED PATIENT CURRENT PLAN OF CARE TO NIGHT NURSE JASSON, PATIENT RESTING WELL IN BED WITH NO SIGN OF DISTRESS NOTED. FAMILY MEMBER AT BEDSIDE.
--- NOTE | 2016-12-31 19:30 | NUR ---
RECEIVED FROM AM RN IN BED WITH FAMILY MEMBERS IN HERE AND PT. ABLE TO UNDERSTAND FRISIAN. A/O X 4. ROM X 4. ABDOMINAL DRESSING TO EXPLORE LAP SITE INTACT AND NO BLEEDING. WITH JOY TO RIGHT ABDOMEN WITH 5 ML SEROUS SANGUINOUS OUTPUT. PT. HAD BM TODAY AND HAD URINATED NORMALLY TOO VERBALIZED TO ME BY PT. IVF SITE TO RFA#20 INTACT AND PATENT. WITH GOOD BLOOD RETURN. WILL LEAVE IVF INTACT FOR CONTINUATION OF IVF TREATMENT IN SNF.
--- NOTE | 2016-12-31 19:52 | NUR ---
I RECEIVED A CALL FROM CHRISTEL FROM [facility] AND PROVIDED REGARDING PATIENT CAN GO TO [facility] ROOM [address]B PHONE NUMBER [phone] . AND AUTH. # FOR TRANSPORT [id number] ,CALLED [facility] TIME IS 10 PM . ENDORSE THE CARE TO JASSON FUENTES .
[2016-12-31] MEDS ORDERED: NOVAPLUS ZOSYN50 ML IV (19:59)
[2016-12-31 20:00] VITALS: BP 128/68
[2016-12-31] MEDS ORDERED: PROTONIX40 MG/Pack PO (20:00)
[2016-12-31] MEDS ORDERED: FLAGYL500 M1 IV (20:00)
[2016-12-31] MEDS ORDERED: POTASSIUM20 MEQ/101 IV (20:22)
[2016-12-31] MEDS: SIMVASTATIN 40 MG TAB PO SCH (21:00)
--- NOTE | 2016-12-31 21:14 | NUR ---
ZOSYN IV 3.375 FOR 2099 NOT GIVEN RT LAST ZOSYN WAS ADMINISTERED BY AM RN AT 1900. REPORT GIVEN TO YADI FUENTES OF [facility].
--- NOTE | 2016-12-31 21:15 | NUR ---
ALL BELONGINGS OF PT. ACCOUNTED FOR AND SIGNED. PT. DISCHARGE PAPERS EXPLAINED TO HIM AND ALL PAPER WORKS FOR DISCHARGE WILL BE SENT WITH HIM TO SNF.
--- NOTE | 2016-12-31 23:23 | NUR ---
PT. PICKED UP BY [facility] WITH SON AND WITH HIM. NO COMPLAINTS DONE. DISCHARGE PAPER WORKS SIGNED AND GAVE TO PT.
== END 2016-12-31 23:25 | DRG 326 ==
LOC: MED → MTU 05:15
PROVIDERS: ADMIT Hospitalist; ATTEND Hospitalist
PROC: 0DQ70ZZ Repair Stomach, Pylorus, Open Approach (ICD-10-PCS; principal; 2016-12-26 14:30)
DX: K26.5 Chronic or unspecified duodenal ulcer with perforation (principal); K65.9 Peritonitis, unspecified; R18.8 Other ascites; I10 Essential (primary) hypertension; E86.0 Dehydration; E78.5 Hyperlipidemia, unspecified; F17.210 Nicotine dependence, cigarettes, uncomplicated; E78.00 Pure hypercholesterolemia, unspecified; K29.70 Gastritis, unspecified, without bleeding; Z79.899 Other long term (current) drug therapy